=== PATIENT | female | born 1945 | race Caucasian/White ===

== ENCOUNTER 2024-05-25 15:20 | Outpatient (CLI) | payer MEDICARE, OTHER | END 2024-05-25 15:21 | disposition home or self-care (01) | LOC: CSHMRI 15:20 | PROVIDERS: ATTEND Orthopaedic Surgery | DX: M75.111 Incomplete rotator cuff tear or rupture of right shoulder, not specified as traumatic (principal); M25.411 Effusion, right shoulder; M94.8X1 Other specified disorders of cartilage, shoulder; M19.011 Primary osteoarthritis, right shoulder ==